=== PATIENT | male | born 1960 | race Caucasian/White ===

== ENCOUNTER → 2017-04-11 | Outpatient (CLI) | payer OTHER ==
[~2017-04-11] MED LIST: ADULT LOW DOSE81 MG PO; BYSTOLIC10 MG PO; K-DUR 20 MEQ T20 MEQ PO; LASIX 40 MG TAB40 M1 PO; MICARDIS40 MG PO; NORVASC10 MG PO; PRAVASTATIN SOD40 MG PO
== END ==
LOC: ULTRA 09:15
DX: K80.20 Calculus of gallbladder without cholecystitis without obstruction (principal); K76.0 Fatty (change of) liver, not elsewhere classified; R16.2 Hepatomegaly with splenomegaly, not elsewhere classified

== ENCOUNTER → 2017-04-15 | Outpatient (CLI) | payer OTHER ==
[~2017-04-15] VITALS: Ht 182.9 cm; Wt 143.8 kg
[~2017-04-15] MED LIST changes: +CENTRUM SILVER1 EAC2; +DULERA 100 MCG/13 GM INH; +FISH OIL 1,001000 M2 PO; +FLOVENT HFA 1110 MCG NASAL; +LASIX 20 MG TAB20 MG; +ODANSETRON PO
--- NOTE | ~2017-04-15 | S ---
[facility] [address] [place] [address] SURGICAL PATH RPT PROCEDURE Name: RAQUEL GUAJARDO Room #: REG [facility]#: [id number] Admission: 04/15/17 Date of : 64 Discharge: Report #: [id number] Path Case #: [id number] PATHOLOGY REPORT COLLECTION DATE: 04/15/2017 RECEIVED DATE: 04/15/2017 SUBMITTING PHYS: Dr. Ray La OTHER PHYS: SPECIMEN(S) RECEIVED: A.Liver-Lt lobe 3 cores * * * * * * * * * * * * FINAL DIAGNOSIS: "Liver-Lt lobe 3 cores," image-guided needle biopsy: - DIFFUSE LARGE B CELL LYMPHOMA, NON-GERMINAL CENTER CELL SUBTYPE. (SEE COMMENT) [facility]NOPT[facility] CANCER STAGING REPORT SPECIMEN Specimen: Other: liver - left lobe Procedure: Biopsy Tumor Site: Other tissue(s) or organ(s): liver - left lobe TUMOR Histologic Type (Based on the 2008 WHO Classification): Mature B-Cell Neoplasms Diffuse large B-cell lymphoma (DLBCL), NOS SPECIAL STUDIES Immunophenotyping (Flow Cytometry and / or Immunohistochemistry): Performed Specify Method(s) and Results: immunohistochemistry - see comment COMMENT: Sections show needle core biopsy fragments of an atypical lymphoid infiltrate. The atypical lymphocytes are medium to large in size with irregular nuclear contours, moderately condensed nuclear chromatin, and moderate cytoplasm. Rare mitotic figures are seen and there is easily identified apoptotic cells / single cell necrosis. No geographic necrosis is identified. To further characterize the atypical lymphocytes, properly controlled immunohistochemical stains are performed. (Block A1) [facility] [address] [place] [address] SURGICAL PATH RPT PROCEDURE Name: RAQUEL GUAJARDO Room #: REG [facility]#: [id number] Admission: 04/15/17 Date of : 64 Discharge: Report #: [id number] Path Case #: [id number] CD20: diffusely reactive PAX-5: diffusely reactive CD3: rare admixed T cells CD5: rare admixed T cells, no B cell co-expression CD10: no significant B cell co-expression BCL-6: no significant B cell co-expression BCL-2: no significant B cell co-expression MUM-1: diffusely reactive CD23: essentially non-reactive Cyclin D-1: lacks diffuse nuclear staining CD30: patchy staining in the tumor cells ALK-1: non-reactive AE1/AE3: non-reactive Ki-67: proliferative index of approximately 80% Overall, the diagnosis is diffuse large B cell lymphoma. It is a non-germinal center cell subtype. No background liver tissue is present for evaluation. Clinical and radiographic correlation is recommended. The H and E stained slides are co-reviewed with Dr. Blessing Chatterjee. The case is discussed with Dr. Ray La on 04/19/17 at approximately 9:50 AM. (CLW:mgr; 04/19/2017) PATHOLOGIST: Tanya Donald M.D. REPORT ELECTRONICALLY SIGNED BY: Tanya Donald M.D. DATE/TIME: 04/19/2017 10:58 * * * * * * * * * * * * GROSS PATHOLOGY: Received in formalin labeled "Raquel Guajardo, liver BX," are 3 distinct needle cores of herbert soft tissue ranging from 0.9 to 1.7 cm in length, which are submitted entirely in cassette A1. ([place]; 04/17/2017) CLINICAL HISTORY: Liver mass INITIAL CPT CODE(S): A; 98323, 78343, 55010, 49127, 48248, 86453, 58154, 33812, 08784, 44024, 44374, 94619, 61293, 99084, 78494 Professional services performed by [facility] at [address], [place] [address] Technical services performed by [facility] at [address] [place] [address], [address], [place] [address]. [address] [address] SURGICAL PATH RPT PROCEDURE Name: RAQUEL GUAJARDO Room #: REG [facility]#: [id number] Admission: 04/15/17 Date of : 64 Discharge: Report #: [id number] Path Case #: [id number] [facility] [address] [address] PHONE: [phone] DIRECTOR: Fernandez Barrett M.D. * * * END OF REPORT * * *
[2017-04-15 10:23] LABS: INR 1.1; PROTIME 11.7 Seconds (9.3-11.4)
[2017-04-15 10:46] VITALS: BP 117/71
[2017-04-15 11:50] LABS: HEMATOCRIT 30.8 % (42.0-52.0); HEMOGLOBIN 10.3 gm/dL (14.0-18.0); MCH 28.2 pg (26.0-34.0); MCHC 33.3 g/dL (28.0-37.0); MCV 84.7 fL (80.0-100.0); RBC 3.64 mil/uL (4.50-6.00); RDW 16.4 % (10.5-14.5); WBC 4.7 thou/uL (4.0-11.0)
[2017-04-15 12:00] VITALS: BP 137/45
[2017-04-15 12:07] VITALS: BP 133/69
[2017-04-15 12:13] VITALS: BP 126/76
[2017-04-15 12:16] VITALS: BP 117/71
== END | disposition home or self-care (01) ==
LOC: ULTRA 09:19
PROVIDERS: Family Medicine; Radiology Vascular & Interventional Radiology
DX: K76.89 Other specified diseases of liver (principal)

== ENCOUNTER → 2019-10-02 | Outpatient (CLI) | payer OTHER | LOC: CAT 09:49 | DX: G44.52 New daily persistent headache (NDPH) (principal); Z88.0 Allergy status to penicillin; Z85.72 Personal history of non-Hodgkin lymphomas ==